=== PATIENT | female | born 1925 | race Caucasian/White ===

== ENCOUNTER 2017-02-24 16:54 | Emergency (ER) | payer MEDICARE, BC ==
[2017-02-24 17:04] VITALS: TEMP 97.6
--- NOTE | 2017-02-24 17:21 | ED ---
Back Pain HPI - General Chief Complaint: Back Pain/Injury Stated Complaint: Fall Time Seen by Provider: 02/24/17 16:54 Source: patient Limitations: no limitations - History of Present Illness Initial Comments: This 89-year-old female with a history of stage III dementia and chronic back pain who apparently fell this morning trying center bed and missed the bed. She landed apparently on her buttock she complains some lumbar pain. She was able ably but apparently had increased pain later this afternoon. She was in by family for evaluation. No reports of loss of function to bladder bowel loss of function upper or lower extremities no head or neck or other back pain. No other symptoms are reported problems. MD Complaint: back pain, fall - Related Data Home Medications Medication Instructions Recorded Confirmed Levothyroxine Sodium [Synthroid] 125 mcg PO DAILY 09/04/14 02/24/17 Aspirin 81 mg PO DAILY 11/02/15 02/24/17 Omeprazole [PriLOSEC] 20 mg PO DAILY 11/02/15 02/24/17 Cyanocobalamin (Vitamin B-12) 1,000 mcg PO DAILY 02/24/17 02/24/17 [Vitamin B-12] Ergocalciferol [Vitamin D2] 50,000 unit PO Q7D 02/24/17 02/24/17 Furosemide [Lasix] 20 mg PO DAILY 02/24/17 02/24/17 Potassium Chloride [Klor-Con 10] 10 meq PO DAILY 02/24/17 02/24/17 Previous Rx's Medication Instructions Recorded Midodrine [ProAmatine] 5 mg PO BID #60 tab 11/04/15 Acetaminophen Tab [Tylenol Tab] 650 mg PO Q6H #20 tablet 02/24/17 Allergies Allergy/AdvReac Type Severity Reaction Status Date / Time Penicillins Allergy Unknown Verified 02/24/17 17:12 Review of Systems ROS Statement: Those systems with pertinent positive or pertinent negative responses have been documented in the HPI. ROS Other: All systems not noted in ROS Statement are negative. Past Medical History Past Medical History: Coronary Artery Disease (CAD), Heart Failure, Dementia, Thyroid Disorder History of Any Multi-Drug Resistant Organisms: None Reported Past Surgical History: Section Past Anesthesia/Blood Transfusion Reactions: No Reported Reaction Additional Past Anesthesia/Blood Transfusion Reaction / Comment(s): pt poor historian Past Psychological History: Anxiety Smoking Status: Unknown if ever smoked Past Alcohol Use History: None Reported Past Drug Use History: None Reported - Past Family History Mother Family Medical History: Unable to Obtain Father Family Medical History: Unable to Obtain General Exam - General Exam Comments Initial Comments: Is a well-developed well-nourished awake alert female. Limitations: no limitations General appearance: alert, in no apparent distress Head exam: Present: atraumatic, normocephalic, normal inspection Eye exam: Present: normal appearance, PERRL, EOMI. Absent: scleral icterus, conjunctival injection, periorbital swelling ENT exam: Present: normal exam, mucous membranes moist Neck exam: Present: normal inspection. Absent: tenderness, meningismus, lymphadenopathy Respiratory exam: Present: normal lung sounds bilaterally. Absent: respiratory distress, wheezes, rales, rhonchi, stridor Cardiovascular Exam: Present: regular rate, normal rhythm, normal heart sounds. Absent: systolic murmur, diastolic murmur, rubs, gallop, clicks GI/Abdominal exam: Present: soft, normal bowel sounds. Absent: distended, tenderness, guarding, rebound, rigid Extremities exam: Present: normal inspection, full ROM, normal capillary refill. Absent: tenderness, pedal edema, joint swelling, calf tenderness Back exam: Present: normal inspection, full ROM, tenderness, paraspinal tenderness, other (Is palpation along the upper lumbar spine paraspinous muscles no definite spinous process tenderness no step-off no crepitation no rash no ecchymosis seen. No tenderness over the lower lumbar spine and coccyx no definite hip pain.). Absent: CVA tenderness (R), CVA tenderness (L), muscle spasm, vertebral tenderness Neurological exam: Present: alert, oriented X3, CN II-XII intact Psychiatric exam: Present: normal affect, normal mood Skin exam: Present: warm, dry, intact, normal color. Absent: rash Course Vital Signs 02/24/17 17:00 Temperature 97.6 F Pulse Rate 81 Respiratory 16 Rate Blood Pressure 111/59 O2 Sat by Pulse 92 L Oximetry Medical Decision Making - Medical Decision Making The patient will be discharged back to her residence. Tylenol for pain at this time. Follow-up with her doctor return when necessary - Radiology Data Radiology results: report reviewed (I did review the imaging and reports no evidence of acute fractures or subluxations. Chronic changes are seen. Please see the complete report), image reviewed Disposition Clinical Impression: Mechanical back pain, Fall Disposition: HOME SELF-CARE Condition: Good Instructions: Acute Low Back Pain (ED), Fall Prevention for Older Adults (ED) Prescriptions: Acetaminophen Tab [Tylenol Tab] 650 mg PO Q6H #20 tablet Referrals: None,Stated [Primary Care Provider] - 1-2 days
--- NOTE | 2017-02-24 17:32 | XR ---
EXAMINATION TYPE: XR lumbosacral spine min 4V DATE OF EXAM: 02/24/2017 COMPARISON: NONE HISTORY: 89-year-old female with pain TECHNIQUE: 5 views FINDINGS: Degenerated levoconvex scoliosis. There is marked osteopenia as well limiting assessment. Hypertrophi c facet arthropathy throughout. Age indeterminate mild anterior wedging of T11 vertebral body. Bulky anterior endplate spondylosis thoracolumbar junction and upper lumbar spine. Allowing for the osteope celia and scoliosis, the remaining vertebral body heights and alignment is maintained. Degenerative thi nning of the interspinous ligaments with abutment of the spinous processes. IMPRESSION: 1. Age indeterminate mild anterior wedging of T11 vertebral body. Correlate for focal pain at this le kimberly. 2. Marked osteopenia and a degenerated levoconvex scoliosis. 3. No malalignment though there is hypertrophic facet arthropathy throughout. 4. Baastrup's disease.
--- NOTE | 2017-02-24 17:32 | XR ---
EXAMINATION TYPE: XR pelvis AP view DATE OF EXAM: 02/24/2017 COMPARISON: 11/02/2015 HISTORY: 89-year-old female with pain FINDINGS: SI joints appear symmetric and intact. Bowel content limits assessment of the right hemisacrum. Pubic symphysis is intact. Moderate axial joint space narrowing with subchondral sclerosis at the right hi p and mild joint space narrowing at the left hip. This appears relatively similar to prior. No acute fracture dislocation allowing for the degree of osteopenia. IMPRESSION: 1. Osteopenia without displaced fracture. 2. Similar moderate right and mild left hip osteoarthrosis.
[2017-02-24] MEDS ORDERED: ACETAMINOPHEN TAB 325 MG TAB PO STA (17:50)
[2017-02-24] MEDS ORDERED: HYDROmorphone 1 MG/ML 1 ML SYRINGE IM STA (18:09)
[2017-02-24] MEDS ORDERED: HYDROmorphone 0.5 MG/0.5 ML SYRINGE IM STA (18:18)
[2017-02-24 18:40] VITALS: BP 110/54; PULSE 84; RESP 18
== END 2017-02-24 19:22 | disposition home or self-care (01) ==
LOC: EC 16:54
DX: M54.5 Low back pain (principal); E07.9 Disorder of thyroid, unspecified; I50.9 Heart failure, unspecified; Z53.8 Procedure and treatment not carried out for other reasons; Z88.0 Allergy status to penicillin; Z79.82 Long term (current) use of aspirin; Z79.899 Other long term (current) drug therapy; W06.XXXA Fall from bed, initial encounter
CPT/HCPCS: 99284; 96372; 72110; 72170; J1170

== ENCOUNTER 2017-02-25 02:12 | Emergency (ER) | payer MEDICARE, BC ==
[~2017-02-25 02:12] MED LIST: EPINEPHrine 10 ML SYRINGE (0.1 MG/ML) ONE
--- NOTE | 2017-02-25 03:51 | ED ---
CPR HPI - General Chief Complaint: Cardiac Arrest/CPR Stated Complaint: Cardiac Arrest Time Seen by Provider: 02/25/17 02:25 Source: EMS Mode of arrival: EMS Limitations: altered mental status - History of Present Illness Initial Comments: 89 years old female was brought in by the ambulance with no pulse, they were doing the CPR on arrival and not quite sure how long she was down. And there was no review of system available on arrival she already was intubated and intubation was done by the EMS people that there were no obvious signs of any trauma CPR was continued for some time and she had no pulse and several doses of epinephrine was given according to ACLS protocol - Related Data Home Medications Medication Instructions Recorded Confirmed Levothyroxine Sodium [Synthroid] 125 mcg PO DAILY 09/04/14 02/24/17 Aspirin 81 mg PO DAILY 11/02/15 02/24/17 Omeprazole [PriLOSEC] 20 mg PO DAILY 11/02/15 02/24/17 Cyanocobalamin (Vitamin B-12) 1,000 mcg PO DAILY 02/24/17 02/24/17 [Vitamin B-12] Ergocalciferol [Vitamin D2] 50,000 unit PO Q7D 02/24/17 02/24/17 Furosemide [Lasix] 20 mg PO DAILY 02/24/17 02/24/17 Potassium Chloride [Klor-Con 10] 10 meq PO DAILY 02/24/17 02/24/17 Previous Rx's Medication Instructions Recorded Midodrine [ProAmatine] 5 mg PO BID #60 tab 11/04/15 Acetaminophen Tab [Tylenol Tab] 650 mg PO Q6H #20 tablet 02/24/17 Allergies Allergy/AdvReac Type Severity Reaction Status Date / Time Penicillins Allergy Unknown Verified 02/24/17 17:12 Review of Systems ROS Statement: Those systems with pertinent positive or pertinent negative responses have been documented in the HPI. ROS Other: All systems not noted in ROS Statement are negative. Past Medical History Past Medical History: Coronary Artery Disease (CAD), Heart Failure, Dementia, Thyroid Disorder History of Any Multi-Drug Resistant Organisms: None Reported Past Surgical History: Section Past Anesthesia/Blood Transfusion Reactions: No Reported Reaction Additional Past Anesthesia/Blood Transfusion Reaction / Comment(s): pt poor historian Past Psychological History: Anxiety Smoking Status: Unknown if ever smoked Past Alcohol Use History: None Reported Past Drug Use History: None Reported - Past Family History Mother Family Medical History: Unable to Obtain Father Family Medical History: Unable to Obtain General Exam - General Exam Comments Initial Comments: General: The patient is unresponsive, is intubated Skin: Skin is warm and dry and no rashes or lesions are noted. No signs of any trauma Eye: Pupils are dilated and fixed and nonreactive. Ears, nose, mouth and throat: He is intubated Neck: The neck has no signs of any trauma Cardiovascular: No cardiac activity noticed Respiratory: To auscultation bilateral, it is some air exchange well-developed baging her Gastrointestinal: Soft, non-distended, non-tender Back: There is no tenderness to palpation in the midline. There is no obvious deformity. Musculoskeletal: No obvious joint deformity noticed no obvious fractures noticed. Neurological: Unresponsive, intubated. Psychiatric: Unresponsive Limitations: altered mental status Course After she arrived in the ER multiple doses of epinephrine was given according to the ACLS protocol and IV Versed and fluid boluses were started, then around 2 :18 AM with the ultrasound cardiac activity was checked, there was no cardiac activity at all she had no pulses pupils were dilated and fixed and nonreactive she was pronounced at 219 Disposition Clinical Impression: Cardiac arrest Disposition: Referrals: None,Stated [Primary Care Provider] - 1-2 days Preliminary Cause of : Probability myocardial infarction
--- NOTE | 2017-02-26 09:39 | HP ---
HISTORY AND PHYSICAL CHIEF COMPLAINT: Cardiac arrest. HISTORY OF PRESENT ILLNESS: I was called during the night. This lady presented with cardiac arrest, was resuscitated and was to be admitted. She did not turn up on the floor and it is understood that she in the emergency room. REVIEW OF SYSTEMS: Past medical history, family history, personal social histories and physical examination were not obtained. ASSESSMENT: She is admitted with a diagnosis of cardiac arrest. MMODL / IJN: [id number] /
--- NOTE | 2017-02-26 09:40 | DS ---
DISCHARGE SUMMARY CHIEF COMPLAINT: Cardiac arrest. HISTORY OF PRESENT ILLNESS: This lady was brought in the emergency room in cardiac arrest and was resuscitated. I was contacted to provide her attendant care. She apparently in the emergency room. FINAL DIAGNOSIS: Cardiac arrest. OPERATION: None. CONSULTATION: None. She is not improved. MMKODYL / LEYDAN: [id number] /
== END 2017-02-25 05:00 | disposition expired ==
LOC: EC 02:12
DX: I46.9 Cardiac arrest, cause unspecified (principal); I25.10 Atherosclerotic heart disease of native coronary artery without angina pectoris; I50.9 Heart failure, unspecified; E07.9 Disorder of thyroid, unspecified; Z88.0 Allergy status to penicillin; Z79.82 Long term (current) use of aspirin; Z79.899 Other long term (current) drug therapy
CPT/HCPCS: 99285; 92950; J0171